=== PATIENT | female | born 1940 | race Caucasian/White ===

== ENCOUNTER 2018-04-20 08:25 | Emergency (ER) | payer MEDICARE, BC ==
[2018-04-20 08:41] VITALS: TEMP 97.6
[2018-04-20] MEDS ORDERED: MECLIZINE HYDROCHLORIDE 12.5 MG TAB PO ONE (08:52)
[2018-04-20] MEDS ORDERED: MECLIZINE HYDROCHLORIDE 12.5 MG TAB ONE (08:58)
[2018-04-20] MEDS ORDERED: ONDANSETRON 4 MG ODT ONE (08:59)
[2018-04-20] MEDS ORDERED: ONDANSETRON 4 MG ODT BU ONE (09:00)
[2018-04-20 09:14] LABS: BASOPHILS % (AUTO) 1 % (0-3); EOSINOPHILS % (AUTO) 2 % (0-9); HEMATOCRIT 35 % (35-47); HEMOGLOBIN 11.5 gm/dl (12.0-15.5); LYMPHOCYTES % (AUTO) 22.7 % (10-50); MEAN CORPUSCULAR HEMOGLOBIN 31.3 pg (27.0-32.0); MEAN CORPUSCULAR HGB CONC 33.1 gm/dl (32.0-36.0); MEAN CORPUSCULAR VOLUME 94 fL (81-99); MONOCYTES % (AUTO) 7.4 % (0-12); NEUTROPHILS % (AUTO) 67.6 % (37-80)
[2018-04-20 09:23] LABS: INR 0.96 (0.86-1.12)
[2018-04-20 09:31] LABS: ALBUMIN 3.7 gm/dl (3.4-5.0); ALKALINE PHOSPHATASE 88 IU/L (46-116); ALT 28 IU/L (14-63); AST 27 IU/L (15-37); BILIRUBIN,TOTAL 0.6 mg/dl (0.2-1.0); BLOOD UREA NITROGEN 14 mg/dl (7-18); CALCIUM 9.1 mg/dl (8.5-10.1); CARBON DIOXIDE 26.4 mEq/L (21-32); CHLORIDE 94 mMol/L (98-107); CREATININE 1.31 mg/dl (0.60-1.00); GLUCOSE 127 mg/dl (74-106); SODIUM 132 mMol/L (136-145); TOTAL PROTEIN 8.9 gm/dl (6.4-8.2); TROP I < 0.017 ng/ml (0.000-0.056)
[2018-04-20] MEDS ORDERED: POTASSIUM CHLORIDE 10 MEQ TER PO ONE (09:50)
[2018-04-20] MEDS ORDERED: POTASSIUM CHLORIDE 10 MEQ TER ONE (09:56)
[2018-04-20 11:20] VITALS: BP 146/76; PULSE 71; RESP 18; O2SAT 95
== END 2018-04-20 11:06 | disposition home or self-care (01) | DRG 149 ==
LOC: ED 08:25
DX: R42 Dizziness and giddiness (principal); I48.91 Unspecified atrial fibrillation
CPT/HCPCS: 70450; 80053; 84484; 85025; 85610; 93005; 99284; 99285; A9270-GY

== ENCOUNTER 2018-12-13 06:46 | Day surgery (SDC) | payer MEDICARE, BC ==
[~2018-12-13 06:46] MED LIST: ACETAZOLAMIDE 250 MG PO ONE; PHENYLEPHRINE HCL 10% OPHTHAL SOL ONE
[2018-12-13] MEDS ORDERED: PHENYLEPHRINE HCL 10% OPHTHAL SOL LEFTEYE ONE (07:05)
[2018-12-13] MEDS: TETRACAINE HCL 0.5 % 1 DROP SOL LEFTEYE ONE ×3 (07:05→08:26)
[2018-12-13] MEDS: CYCLOPENTOLATE 1% SOL ONE ×2 (07:06→07:18)
[2018-12-13] MEDS: KETOROLAC 0.5% OPTH 60 DROP SOL ONE ×2 (07:06→07:18)
[2018-12-13 07:12] VITALS: TEMP 97.9
[2018-12-13] MEDS ORDERED: FENTANYL 100MCG/2ML SOL ONE (08:02)
[2018-12-13] MEDS ORDERED: MIDAZOLAM 2 MG/2 ML SOL ONE (08:02)
[2018-12-13] MEDS ORDERED: POVIDONE IODINE 5% SOL ONE (08:24)
[2018-12-13] MEDS ORDERED: LIDOCAINE HCL 1% MPF 30 SOL ONE (08:24)
[2018-12-13] MEDS ORDERED: BSS 500 ML 500 ML IR ONE (08:24)
[2018-12-13] MEDS: IMPRIMIS ONE ×2 (08:38→08:46)
[2018-12-13 08:55] VITALS: BP 112/63; PULSE 66; RESP 20; O2SAT 92
== END 2018-12-13 09:14 | disposition home or self-care (01) | DRG 125 ==
LOC: SURG 06:46
PROVIDERS: ATTEND Ophthalmology
DX: H25.89 Other age-related cataract (principal)
CPT/HCPCS: J2250; J3010; A9270-GY; J2001